=== PATIENT | male | born 1940 | race Caucasian/White ===

== ENCOUNTER 2019-07-24 11:23 | Emergency (ER) | payer MEDICARE, OTHER ==
[~2019-07-24] VITALS: Ht 165.1 cm; Wt 74.4 kg
[~2019-07-24 11:23] MED LIST: [UNRECOGNIZED DRUG - CODE]; [UNRECOGNIZED DRUG - REMARK]
[2019-07-24 13:25] VITALS: BP 124/94
--- NOTE | 2019-07-24 13:25 | NUR ---
Patient discharged to home in stable conditon. Written and verbal after care instructions given. Patient verbalizes understanding of instructions.
== END 2019-07-24 13:25 | disposition home or self-care (01) ==
LOC: ER 11:25
DX: S92.322A Displaced fracture of second metatarsal bone, left foot, initial encounter for closed fracture (principal); S80.211A Abrasion, right knee, initial encounter; I10 Essential (primary) hypertension; I25.2 Old myocardial infarction; Z79.899 Other long term (current) drug therapy; V03.99XA Pedestrian with other conveyance injured in collision with car, pick-up truck or van, unspecified whether traffic or nontraffic accident, initial encounter; Y93.01 Activity, walking, marching and hiking; Y92.410 Unspecified street and highway as the place of occurrence of the external cause; Y99.8 Other external cause status
CPT/HCPCS: 73630; A4663

== ENCOUNTER 2019-07-30 12:51 | Emergency (ER) | payer MEDICARE, OTHER ==
--- NOTE | 2019-07-30 13:00 | NUR ---
Pt comes in with (who is translating) for the pt. They were referred to [facility] for an MRI from an outpatient imaging facility but came here by accident. requested I check the pt's BP prior to hem leving, BP was 137/87. They do not want to be seen at this facility and stated they will go to [facility] instead. Pt and were informed they are welcome to be seen here if they like but they declined.
== END 2019-07-30 13:04 | disposition left against medical advice (07) ==
LOC: ER 12:51
DX: Z53.21 Procedure and treatment not carried out due to patient leaving prior to being seen by health care provider (principal)